=== PATIENT | female | born 1985 | race African-American/Black ===

== ENCOUNTER 2023-12-14 09:42 | Outpatient (CLI) | payer BC, SELFPAY ==
--- NOTE | ~2023-12-14 | US_ITS ---
EXAMINATION: US thyroid DATE: 12/14/2023 09:56 INDICATION: Nontoxic single thyroid nodule. TECHNIQUE: Multiple ultrasound images of the thyroid were obtained. COMPARISON: None. FINDINGS: The right thyroid lobe measures 4.7 x 2.4 x 1.6 cm. The left thyroid lobe measures 4.7 x 2.2 x 1.7 c m. In the left thyroid lobe, there is a 2.3 cm solid, hypoechoic, wider than tall nodule with smooth margin without echogenic foci (TI-RADS TR4). IMPRESSION: 1. Left thyroid nodule. Ultrasound-guided find-needle aspiration is recommended. Reviewed, dictated and finalized at location A. IMPRESSION: 1. Left thyroid nodule. Ultrasound-guided find-needle aspiration is recommended .
== END 2023-12-14 09:43 | disposition home or self-care (01) ==
LOC: GOSHIMG 09:43
PROVIDERS: PCP Internal Medicine Endocrinology, Diabetes & Metabolism; Visit Provider Internal Medicine Endocrinology, Diabetes & Metabolism
DX: E04.1 Nontoxic single thyroid nodule (principal)
CPT/HCPCS: 76536

== ENCOUNTER 2023-12-14 09:58 | Outpatient (CLI) | payer BC, SELFPAY ==
[2023-12-14 14:41] LABS: Alanine Aminotransferase 24 U/L (6-35); Albumin Level 4.4 g/dL (3.5-5.1); Alkaline Phosphatase 71 U/L (38-126); Anion Gap 10 mmol/L (4-12); Aspartate Amino Transferase 90 U/L (14-36); Bilirubin,Total 0.5 mg/dL (0.2-1.3); Blood Urea Nitrogen 11 mg/dL (7-17); Calcium 9.1 mg/dL (8.4-10.2); Carbon Dioxide 26 mmol/L (22-30); Chloride 103 mmol/L (98-107); Cholesterol 137 mg/dL (0-200); Estimated Glomerular Filt Rate > 60; Glucose 141 mg/dL (65-110); HDL Direct 33 mg/dL; Potassium 4.1 mmol/L (3.4-5.0); Sodium 139 mmol/L (137-145); Triglycerides 85 mg/dL (<150)
[2023-12-14 14:52] LABS: LDL Cholesterol Direct 64 mg/dL
[2023-12-14 14:56] LABS: Creatinine Urine 271.6 mg/dL
[2023-12-14 15:10] LABS: Thyroid Stimulating Hormone 0.914 uIU/mL (0.465-4.680)
[2023-12-14 15:17] LABS: MALB Creatinine Ratio 96.9 mg/g (0-30); Microalbumin Urine Random 263.1 mg/L (0-16.7)
[2023-12-14 16:20] LABS: Vitamin D 25 Hydroxy < 12.8 ng/mL
== END 2023-12-14 09:59 | disposition home or self-care (01) ==
LOC: ANHGOSHLAB 09:59
PROVIDERS: PCP Internal Medicine Endocrinology, Diabetes & Metabolism; Visit Provider Internal Medicine Endocrinology, Diabetes & Metabolism
DX: E04.1 Nontoxic single thyroid nodule (principal); E11.65 Type 2 diabetes mellitus with hyperglycemia
CPT/HCPCS: 36415; 80053; 80061; 82043; 82306; 82607; 84443

== ENCOUNTER 2024-03-17 12:45 | Outpatient (CLI) | payer BC, SELFPAY ==
--- NOTE | ~2024-03-17 | US_ITS ---
EXAMINATION: US FNA w image guidance DATE: 03/17/2024 14:01 INDICATION: Left thyroid nodule TECHNIQUE: A time-out was performed to verify the patient's name, date of , and procedure to be performed . The procedure and its benefits and risks were discussed with the patient. Risks specifically discus sed included bleeding and infection. The patient understood the risks and agreed to proceed. The neck was prepped and draped in the usual sterile manner. 4 mL 1% lidocaine was used for local anesthesia . 7 passes were made with a 25G needle into the lesion. Appropriate needle location was documented with continuous sonographic guidance. A sterile bandage was applied. There were no immediate compli cations. FINDINGS: Grayscale ultrasound images demonstrate biopsy needles advanced into the previously noted 2.3 cm hypo echoic TI-RADS 4 left thyroid nodule. IMPRESSION: 1. Successful ultrasound-guided fine needle aspiration of the TI-RADS 4 left thyroid nodule of vipin rn. Reviewed, dictated and finalized at location A. GER STRATEGIC IMPRESSION: 1. Successful ultrasound-guided fine needle aspiration of the TI-RADS 4 left t hyroid nodule of concern.
== END 2024-03-17 12:46 | disposition home or self-care (01) ==
PROVIDERS: PCP Family Medicine; Visit Provider Internal Medicine Endocrinology, Diabetes & Metabolism
DX: E04.1 Nontoxic single thyroid nodule (principal)
CPT/HCPCS: 10005; 88172; 88173; 88177; 88305